=== PATIENT | female | born 1985 | race Caucasian/White ===

== ENCOUNTER 2017-10-01 10:13 | Emergency (ER) | payer OTHER ==
[~2017-10-01 10:13] MED LIST: ANAPROX DS550 MG PO; BIRTH CONTROL1 EAC1 PO; MACROBID100 M1 PO; PREDNICOT20 MG PO; ULTRAM50 MG PO; VOLTAREN50 M1 PO; ZITHROMAX Z PA250 MG PO
[2017-10-01 10:35] LABS: BASO % 0.2 % (0.0-1.0); EOS # 0.2 10*3/uL (0.0-0.4); EOS % 1.1 % (1.0-4.0); HEMATOCRIT 37.3 % (37.0-47.0); HEMOGLOBIN 12.7 g/dl (12.0-16.0); MEAN CELL VOLUME 94.2 fl (81.0-99.0); MEAN CORPUSCULAR HGB 32.1 pg (27.0-31.0); MEAN PLATELET VOLUME 9.2 fl (9.6-12.3); MONO # 0.8 10*3/uL (0.1-1.0); MONO % 4.5 % (3.0-9.0); NEUT # 13.8 10*3/uL (2.3-7.9); NEUT % 81.7 % (47.0-73.0); PLATELET COUNT AUTOMATED 343 10*3/uL (130-400); RED BLOOD COUNT 3.96 10*6/uL (4.10-5.10); RED CELL DISTRI WIDTH 12.6 % (0-14.5); WHITE BLOOD COUNT 16.9 10*3/uL (4.8-10.8)
[2017-10-01 10:38] LABS: BILIRUBIN NEGATIVE (NEGATIVE); BLOOD 2+ (NEGATIVE); CLARITY SL CLOUDY (CLEAR); COLOR YELLOW (YELLOW); GLUCOSE NEGATIVE (NEGATIVE); KETONE NEGATIVE (NEGATIVE); LEUKO ESTERASE TRACE (NEGATIVE); NITRITE NEGATIVE (NEGATIVE); UROBILINOGEN 0.2 E.U./dl (0.2-1.0)
[2017-10-01 10:50] LABS: ALBUMIN 3.9 gm/dl (3.1-4.5); ALKALINE PHOSPHATASE 51 U/L (45-117); BUN 8 mg/dl (7-24); CHLORIDE 102 mmol/L (98-107); CREATININE 0.56 mg/dL (0.55-1.02); POTASSIUM 3.8 mmol/L (3.5-5.1); SGOT/AST 17 IU/L (3-35); SGPT/ALT 23 U/L (12-78); SODIUM 137 mmol/L (136-145); TOTAL PROTEIN 7.6 gm/dL (6.4-8.2)
[2017-10-01 10:51] LABS: BACTERIA TRACE; EPITHELIAL CELLS 16-20; WBC 16-20 wbc/hpf (0-5)
== END 2017-10-01 13:34 | disposition home or self-care (01) ==
LOC: ED 10:13
PROVIDERS: Student in an Organized Health Care Education/Training Program
DX: O46.91 Antepartum hemorrhage, unspecified, first trimester (principal); O99.331 Smoking (tobacco) complicating pregnancy, first trimester; F17.200 Nicotine dependence, unspecified, uncomplicated; Z3A.01 Less than 8 weeks gestation of pregnancy

== ENCOUNTER 2018-02-21 18:15 | Emergency (ER) | payer OTHER ==
[~2018-02-21] VITALS: Wt 45.4 kg
[2018-02-21] MEDS ORDERED: PRENA1 CHEW TA1.4 MG PO (18:17)
== END 2018-02-21 18:35 | disposition home or self-care (01) ==
LOC: ED 18:15
DX: O99.711 Diseases of the skin and subcutaneous tissue complicating pregnancy, first trimester (principal); L23.7 Allergic contact dermatitis due to plants, except food; Z79.899 Other long term (current) drug therapy; Z3A.01 Less than 8 weeks gestation of pregnancy

== ENCOUNTER 2018-03-06 09:15 | Emergency (ER) | payer OTHER ==
[~2018-03-06] VITALS: Ht 154.9 cm; Wt 45.4 kg
[~2018-03-06 09:15] MED LIST changes: +PRENA1 CHEW TA1.4 MG PO
[2018-03-06 09:34] LABS: BASO % 0.2 % (0.0-1.0); EOS # 0.1 10*3/uL (0.0-0.4); EOS % 0.9 % (1.0-4.0); HEMATOCRIT 35.6 % (37.0-47.0); HEMOGLOBIN 12.2 g/dl (12.0-16.0); LYMPH # 2.2 10*3/uL (1.3-4.4); LYMPH % 17.9 % (27.0-41.0); MEAN CELL VOLUME 94.2 fl (81.0-99.0); MEAN CORPUSCULAR HGB 32.3 pg (27.0-31.0); MEAN CORPUSCULAR HGB CONC 34.3 g/dl (33.0-37.0); MEAN PLATELET VOLUME 8.9 fl (9.6-12.3); MONO # 0.7 10*3/uL (0.1-1.0); MONO % 6.1 % (3.0-9.0); NEUT # 9.1 10*3/uL (2.3-7.9); NEUT % 74.4 % (47.0-73.0); PLATELET COUNT AUTOMATED 305 10*3/uL (130-400); RED BLOOD COUNT 3.78 10*6/uL (4.10-5.10); RED CELL DISTRI WIDTH 12.3 % (0-14.5); WHITE BLOOD COUNT 12.2 10*3/uL (4.8-10.8)
[2018-03-06 09:41] LABS: BILIRUBIN NEGATIVE (NEGATIVE); BLOOD NEGATIVE (NEGATIVE); CLARITY SL CLOUDY (CLEAR); COLOR YELLOW (YELLOW); GLUCOSE NEGATIVE (NEGATIVE); KETONE NEGATIVE (NEGATIVE); LEUKO ESTERASE 1+ (NEGATIVE); NITRITE NEGATIVE (NEGATIVE); UROBILINOGEN 0.2 E.U./dl (0.2-1.0)
[2018-03-06 09:53] LABS: ALBUMIN 3.4 gm/dl (3.1-4.5); ALKALINE PHOSPHATASE 52 U/L (45-117); BUN 6 mg/dl (7-24); CHLORIDE 103 mmol/L (98-107); CREATININE 0.46 mg/dL (0.55-1.02); SGOT/AST 10 IU/L (3-35); SGPT/ALT 17 U/L (12-78); SODIUM 137 mmol/L (136-145); TOTAL PROTEIN 7.4 gm/dL (6.4-8.2)
[2018-03-06 09:59] LABS: EPITHELIAL CELLS 21-30
[2018-03-06 10:00] LABS: BACTERIA 1+
[2018-03-06] MEDS ORDERED: LEVAQUIN250 M1 PO (10:32)
[2018-03-07] MEDS ORDERED: VALTREX500 MG PO (12:28)
[2018-03-07] MEDS ORDERED: NEURONTIN300 MG PO (12:29)
== END 2018-03-06 10:38 | disposition home or self-care (01) ==
LOC: ED 09:15
PROVIDERS: Emergency Medicine
DX: O26.891 Other specified pregnancy related conditions, first trimester (principal); O23.41 Unspecified infection of urinary tract in pregnancy, first trimester; R55 Syncope and collapse; Z3A.08 8 weeks gestation of pregnancy; Z79.899 Other long term (current) drug therapy

== ENCOUNTER 2018-03-07 10:49 | Emergency (ER) | payer OTHER ==
[~2018-03-07] VITALS: Ht 154.9 cm; Wt 45.4 kg
[~2018-03-07 10:49] MED LIST changes: +LEVAQUIN250 M1 PO
[2018-03-07 11:11] LABS: BASO % 0.2 % (0.0-1.0); EOS # 0.1 10*3/uL (0.0-0.4); EOS % 0.6 % (1.0-4.0); HEMATOCRIT 34.1 % (37.0-47.0); HEMOGLOBIN 11.7 g/dl (12.0-16.0); LYMPH # 2.7 10*3/uL (1.3-4.4); LYMPH % 20.5 % (27.0-41.0); MEAN CORPUSCULAR HGB 32.6 pg (27.0-31.0); MEAN CORPUSCULAR HGB CONC 34.3 g/dl (33.0-37.0); MEAN PLATELET VOLUME 8.8 fl (9.6-12.3); MONO # 0.8 10*3/uL (0.1-1.0); MONO % 5.8 % (3.0-9.0); NEUT # 9.3 10*3/uL (2.3-7.9); NEUT % 72.3 % (47.0-73.0); PLATELET COUNT AUTOMATED 288 10*3/uL (130-400); RED BLOOD COUNT 3.59 10*6/uL (4.10-5.10); RED CELL DISTRI WIDTH 12.2 % (0-14.5); WHITE BLOOD COUNT 12.9 10*3/uL (4.8-10.8)
[2018-03-07 11:24] LABS: ALBUMIN 3.6 gm/dl (3.1-4.5); ALKALINE PHOSPHATASE 50 U/L (45-117); BUN 5 mg/dl (7-24); CHLORIDE 101 mmol/L (98-107); CREATININE 0.49 mg/dL (0.55-1.02); POTASSIUM 3.3 mmol/L (3.5-5.1); SGOT/AST 14 IU/L (3-35); SGPT/ALT 16 U/L (12-78); SODIUM 135 mmol/L (136-145); TOTAL PROTEIN 7.3 gm/dL (6.4-8.2)
[2018-03-07] MEDS ORDERED: VALTREX500 MG PO (12:28)
[2018-03-07] MEDS ORDERED: NEURONTIN300 MG PO (12:29)
== END 2018-03-07 13:19 | disposition home or self-care (01) ==
LOC: ED 10:49
PROVIDERS: Nurse Practitioner
DX: O23.41 Unspecified infection of urinary tract in pregnancy, first trimester (principal); N93.8 Other specified abnormal uterine and vaginal bleeding; O26.891 Other specified pregnancy related conditions, first trimester; E86.0 Dehydration; Z79.899 Other long term (current) drug therapy; Z3A.08 8 weeks gestation of pregnancy

== ENCOUNTER 2024-02-23 17:15 | Emergency (ER) | payer OTHER ==
[~2024-02-23] VITALS: Ht 152.4 cm; Wt 45.4 kg
[~2024-02-23 17:15] MED LIST changes: +KEFLEX500 M1 PO; +NEURONTIN300 MG PO; +VALTREX500 MG PO
[2024-02-23 18:03] LABS: BASO % 0.3 % (0.0-1.0); EOS # 0.1 10*3/uL (0.0-0.4); EOS % 1.2 % (1.0-4.0); LYMPH # 0.8 10*3/uL (1.3-4.4); LYMPH % 9.1 % (27.0-41.0); MEAN CELL VOLUME 95.4 fl (81.0-99.0); MEAN CORPUSCULAR HGB 31.4 pg (27.0-31.0); MEAN PLATELET VOLUME 8.8 fl (9.6-12.3); MONO # 0.5 10*3/uL (0.1-1.0); MONO % 5.7 % (3.0-9.0); NEUT # 7.5 10*3/uL (2.3-7.9); NEUT % 83.4 % (47.0-73.0); PLATELET COUNT AUTOMATED 482 10*3/uL (130-400); RED BLOOD COUNT 3.88 10*6/uL (4.10-5.10); RED CELL DISTRI WIDTH 11.9 % (0-14.5)
[2024-02-23 18:03] LABS: BILIRUBIN Negative (Negative); BLOOD 1+ (Negative); CLARITY Clear (Clear); COLOR Dark Yellow (Yellow); GLUCOSE Negative (Negative); KETONE Trace (Negative); LEUKO ESTERASE 2+ (Negative); NITRITE Negative (Negative); PH 5.5 (4.5-8.0); SPECIFIC GRAVITY >= 1.030 (1.001-1.030)
[2024-02-23 18:10] LABS: MUCOUS 3+
[2024-02-23 18:11] LABS: WBC 31-40 wbc/hpf (0-5)
[2024-02-23 18:25] LABS: ALKALINE PHOSPHATASE 74 U/L (46-116); BUN 8 mg/dl (9-23); CHLORIDE 104 mmol/L (98-107); POTASSIUM 3.1 mmol/L (3.4-5.1); SGPT/ALT 9 U/L (5-49); TOTAL PROTEIN 7.4 gm/dL (6.0-8.0)
[2024-02-23] MEDS ORDERED: CIPRO500 MG PO (18:28)
[2024-02-23] MEDS ORDERED: POTASSIUM CHLORIDE 20 MEQ TAB PO ONE (18:30)
== END 2024-02-23 18:30 | disposition home or self-care (01) ==
LOC: ED 17:15
PROVIDERS: Internal Medicine
DX: N39.0 Urinary tract infection, site not specified (principal); R11.2 Nausea with vomiting, unspecified

== ENCOUNTER → 2024-03-15 | Outpatient (CLI) | payer OTHER ==
[~2024-03-15] MED LIST changes: +CIPRO500 MG PO
== END | disposition home or self-care (01) ==
LOC: LAB 10:36 → RAD 10:36
PROVIDERS: ATTEND Nurse Practitioner Family
DX: R10.30 Lower abdominal pain, unspecified (principal)

== ENCOUNTER → 2025-01-30 | Outpatient (CLI) | payer OTHER ==
[2025-01-30 09:57] LABS: BASO # 0.1 10*3/uL (0.0-0.1); BASO % 0.3 % (0.0-1.0); EOS # 0.3 10*3/uL (0.0-0.4); EOS % 2.1 % (1.0-4.0); HEMATOCRIT 33.1 % (37.0-47.0); MEAN CELL VOLUME 92.7 fl (81.0-99.0); MEAN CORPUSCULAR HGB 31.7 pg (27.0-31.0); MEAN CORPUSCULAR HGB CONC 34.1 g/dl (33.0-37.0); MONO # 1.1 10*3/uL (0.1-1.0); NEUT # 12.4 10*3/uL (2.3-7.9); NEUT % 77.2 % (47.0-73.0); PLATELET COUNT AUTOMATED 411 10*3/uL (130-400); RED BLOOD COUNT 3.57 10*6/uL (4.10-5.10); RED CELL DISTRI WIDTH 12.1 % (0-14.5)
[2025-01-30 10:37] LABS: ALKALINE PHOSPHATASE 63 U/L (46-116); BUN 11 mg/dl (9-23); CHLORIDE 104 mmol/L (98-107); FREE T4 1.32 ng/dl (0.89-1.76); POTASSIUM 3.2 mmol/L (3.4-5.1); SGPT/ALT 10 U/L (5-49); TOTAL PROTEIN 6.9 gm/dL (6.0-8.0)
== END | disposition home or self-care (01) ==
LOC: LAB 09:31
PROVIDERS: ATTEND Internal Medicine
DX: M25.561 Pain in right knee (principal); E78.00 Pure hypercholesterolemia, unspecified; E55.9 Vitamin D deficiency, unspecified; Z79.899 Other long term (current) drug therapy